=== PATIENT | female | born 1955 | race Caucasian/White ===

== ENCOUNTER → 2016-12-28 11:38 | Outpatient (CLI) | payer OTHER | END | disposition home or self-care (01) | LOC: D.CT 11:38 | DX: R10.2 Pelvic and perineal pain (principal); R10.9 Unspecified abdominal pain ==

== ENCOUNTER → 2018-03-03 14:13 | Outpatient (CLI) | payer OTHER | END | disposition home or self-care (01) | LOC: D.MRI 14:13 | DX: M25.511 Pain in right shoulder (principal) ==